=== PATIENT | female | born 1990 ===

== ENCOUNTER 2024-09-13 20:37 | Emergency (ER) | payer MEDICAID ==
[~2024-09-13] VITALS: Ht 167.6 cm; Wt 56.2 kg
[2024-09-13 20:47] VITALS: BP 125/89; PULSE 89; RESP 16; TEMP 97.8; O2SAT 100
--- NOTE | 2024-09-13 20:54 | Physician Documentation ---
History of Present Illness ~ Chief Complaint: Laceration Stated Complaint: ARM LACK HPI This is a 34-year-old female who presents with a laceration to her right arm after knocked over by a dog patient reports last Tdap in the last 10 years. Bleeding was controlled prior to arrival patient reports no other injuries or acute symptoms or concerns. Review of Systems ROS Arm laceration as stated above in the HPI, otherwise all systems are reviewed and negative. Physical Exam Vital Signs: Temperature: 97.8, Source: Temporal, Heart Rate: 89, Respiratory Rate: 16, BP: 125/89, Pulse Oximetry: 100, Weight: 56.200 Oxygen Flow Rate: 0 Physical Exam VITALS: Reviewed and as above. GENERAL: Alert, nontoxic appearing, no apparent distress. RESPIRATORY: No increased work of breathing, no respiratory distress, speaking in full clear sentences EXTREMITIES: Dressed wound to right forearm, no active bleeding Progress Results/Orders Results/Orders Vital Signs 09/13/24 20:47 Temp 97.8 Pulse 89 Resp 16 B/P (MAP) 125/89 Pulse Ox 100 O2 Flow Rate 0 Medical Decision Making Findings MSE performed in triage and patient returned to ED lobby by nursing staff to await an available ED room for further evaluation of laceration to arm, dressing left in place until patient was in room. Patient was hemodynamically stable with no active bleeding and appropriate for weight and lobby. Patient advised registration staff that she did not want to wait and it appears patient has eloped from the emergency department. Differential Dx:Considerations: Include: Avulsion, Contusion, Laceration, Fracture, Hematoma, Neurovascular injury, Retained foreign body Departure Disposition: 07 LEFT AWOL/ELOPED Impression: Primary Impression: Laceration Referrals: NO PRIMARY CARE PROVIDER (PCP) Signature Scribe Signature: No scribe Attestation: The note accurately reflects work and decisions made by me.DOMITILA [place] 09/14/24 02:35 NIKIA WOLF Sep 13, 2024 20:54
== END 2024-09-13 22:50 | disposition left against medical advice (07) ==
LOC: ER 20:38
DX: S51.811A Laceration without foreign body of right forearm, initial encounter (principal); W54.1XXA Struck by dog, initial encounter; Y93.89 Activity, other specified; Y92.89 Other specified places as the place of occurrence of the external cause; Y99.8 Other external cause status
CPT/HCPCS: 99281; 99282